=== PATIENT | female | born 1960 | race Hispanic/Latino ===

== ENCOUNTER → 2016-09-23 | Outpatient (CLI) | payer OTHER ==
[~2016-09-23] MED LIST: LIDOCAINE 1% MDV 20ML VIAL As Ordered ONE
--- NOTE | 2016-09-23 16:42 | REP ---
DIGITAL LEFT MAMMOGRAM: 09/23/2016. Comparison: MRI breast 07/09/2016, ultrasound left breast and diagnostic mammogram 06/04/2016 at [facility], screening mammogram 05/24/2016, at [facility]. Study is intended as stereotactic mammographic biopsy of nodular tissue asymmetry lower outer quadrant left breast. The finding persists on the diagnostic mammogram, was not seen on ultrasound and MRI breast was unremarkable. Procedure was described to the patient and consent obtained by MISA Nelson, under my direct supervision. The patient seated a lateral approach to the inner half of the right breast was done and stereo pair image set were obtained. Images do not clearly define a nodule. The field of view was moved inferiorly to cover more of the anterior inferior of left breast. This did not satisfactorily reveal the area in question. Therefore it was decided to attempt a decubitus position with the imaging from below the inner half of the anterior left breast. This also failed to clearly identify the nodular tissue asymmetry as a reproducible target for this exam. I suspect decompression of the examination has completely resolved or compressed the findings to a normal appearance of the surrounding parenchyma. Impression: 1. Cancelled attempt at stereotactic biopsy of some nodular tissue asymmetry of the lower inner quadrant left breast seen on outside mammogram. Both the ultrasound and MRI breast were unremarkable in this patient. The stereotactic pair of images in multiple projections and attempts are unable to identify the clearly definable nodular tissue asymmetry seen on the screening and diagnostic mammogram previously. I suspect it may resolved completely with the compression device. My recommendation would be for the patient to return for diagnostic left mammogram and possible breast ultrasound 6 months from her prior diagnostic mammogram which would be December or January of this year. She understands and no earlier follow-up is felt warranted at this time, unless clinically urgent physical finding is present. Signed by Drew Thayer MD 09/23/2016 05:27 P
== END ==
LOC: M RADPRO 12:12
PROVIDERS: ATTEND Surgery
DX: N63 Unspecified lump in breast (principal)
CPT/HCPCS: 19081; G0206

== ENCOUNTER → 2017-07-01 | Outpatient (CLI) | payer OTHER ==
--- NOTE | 2017-07-01 16:47 | REPMRS ---
Patient History The patient states she had a clinical breast exam in December 2016. Patient had first child at age 33. Family history of endometrial cancer in maternal aunt at age 55. Digital Mammo Screening Bilat: July 01, 2017 - Exam #: [id number] Bilateral CC and MLO view(s) were taken. Technologist: Ling Morrison, Technologist Prior study comparison: November 18, 2012, bilateral digital mammo screening bilat performed at [facility]. November 05, 2011, bilateral digital mammo screening bilat performed at [facility]. FINDINGS: There are scattered fibroglandular densities. There has been no change in the appearance of the mammogram from the prior studies. There is a mild amount of scattered fibroglandular density which is fairly symmetric. There is no interval development of dominant mass, architectural distortion, or clustered microcalcification suggestive of malignancy. ASSESSMENT: BI-RADS/ACR category 1 mammogram. Negative. Recommendation Routine screening mammogram in 1 year (for women over age 40). This mammogram was interpreted with the aid of an FDA-approved computer-aided dectection system. Electronically Signed By: Juan Manuel Lagunas MD 07/01/17 [id number]
== END ==
LOC: M RAD 14:55
PROVIDERS: ATTEND Family Medicine
DX: Z12.31 Encounter for screening mammogram for malignant neoplasm of breast (principal); Z80.49 Family history of malignant neoplasm of other genital organs

== ENCOUNTER → 2019-08-05 | Outpatient (CLI) | payer OTHER ==
--- NOTE | 2019-08-05 10:11 | REPMRS ---
Patient History The patient states she has not had a clinical breast exam in over a year. Family history of endometrial cancer at age 55 in maternal aunt. Digital Mammo Screening Bilat: August 05, 2019 - Exam #: [id number] Bilateral CC and MLO view(s) were taken. Technologist: Leyda Dinh Technologist Prior study comparison: August 05, 2018, bilateral digital mammo screening bilat performed at [facility]. July 01, 2017, bilateral digital mammo screening bilat performed at [facility]. November 18, 2012, bilateral digital mammo screening bilat performed at [facility]. FINDINGS: There are scattered fibroglandular densities. There has been no change in the appearance of the mammogram from the prior studies. There is a mild amount of scattered fibroglandular density which is fairly symmetric. There is no interval development of dominant mass, architectural distortion, or grouped microcalcification suggestive of malignancy. Assessment: BI-RADS/ACR category 1 mammogram. Negative Mammogram. Recommendation Routine screening mammogram of both breasts in 1 year (for women over age 40). This patient's Lifetime Breast Cancer Risk is estimated at 10.3 %. This mammogram was interpreted with the aid of an FDA-approved computer-aided dectection system. Electronically Signed By: Juan Manuel Lagunas MD 08/05/19 1011
== END ==
LOC: M RAD 08:33
PROVIDERS: ATTEND Family Medicine
DX: Z12.31 Encounter for screening mammogram for malignant neoplasm of breast (principal)

== ENCOUNTER → 2019-08-25 | Outpatient (REF) | payer OTHER | LOC: M SFHCLERA 17:45 | PROVIDERS: ATTEND Nurse Practitioner Family | DX: R68.89 Other general symptoms and signs (principal) ==

== ENCOUNTER → 2020-09-20 | Outpatient (CLI) | payer OTHER ==
--- NOTE | 2020-09-20 16:06 | REPMRS ---
Patient History The patient states she has not had a clinical breast exam in over a year. Patient is postmenopausal and had first child at age 33. Family history of endometrial cancer at age 55 in maternal aunt. No Hormone Replacement Therapy Digital Woman Screen Mammo: September 20, 2020 - Exam #: [id number] Bilateral CC and MLO view(s) were taken. Technologist: Ketty Garrido, Technologist Prior study comparison: August 05, 2019, bilateral digital mammo screening bilat, performed at [facility]. August 05, 2018, bilateral digital mammo screening bilat, performed at [facility]. July 01, 2017, bilateral digital mammo screening bilat, performed at [facility]. FINDINGS: There are scattered fibroglandular densities. The Volpara volumetric breast density category is:B. There has been no change in the appearance of the mammogram from the prior studies. There is a mild amount of scattered fibroglandular density which is fairly symmetric. There is no interval development of dominant mass, architectural distortion, or grouped microcalcification suggestive of malignancy. 3-D tomosynthesis shows no additional findings. Assessment: BI-RADS/ACR category 1 mammogram. Negative Mammogram. Recommendation Routine screening mammogram of both breasts in 1 year (for women over age 40). This patient's [facility] Lifetime Breast Cancer Risk is estimated at 10.0 %. This mammogram was interpreted with the aid of an FDA-approved computer-aided dectection system. Electronically Signed By: Juan Manuel Lagunas MD 09/20/20 [id number]
== END ==
LOC: M WHC 14:57
PROVIDERS: ATTEND Family Medicine
DX: Z12.31 Encounter for screening mammogram for malignant neoplasm of breast (principal); Z80.49 Family history of malignant neoplasm of other genital organs

== ENCOUNTER → 2023-01-15 | Outpatient (CLI) | payer OTHER | LOC: M WHC 14:50 | PROVIDERS: ATTEND Family Medicine | DX: Z12.31 Encounter for screening mammogram for malignant neoplasm of breast (principal) ==

== ENCOUNTER 2023-09-24 10:54 | Day surgery (SDC) | payer OTHER ==
[~2023-09-24] VITALS: Ht 157.5 cm; Wt 66.7 kg
[~2023-09-24 10:54] MED LIST changes: +CIDA500T2 PO; +ERGO500029 PO; -LIDOCAINE 1% MDV 20ML VIAL As Ordered ONE; +LIDOCAINE 3.5 % 1ML OPHTH TOPICAL GEL OU ONE
[2023-09-24] MEDS ORDERED: LR 500 ML IV SCH (13:10)
[2023-09-24] MEDS: POVIDONE-IODINE 5% OPHTH PREP SOL 30ML As Ordered ONE (13:54)
[2023-09-24] MEDS: LIDOCAINE 2% W/EPINEPHRINE 20ML VIAL **PRES FREE As Ordered ONE (13:54)
[2023-09-24] MEDS: TOBRADEX OPHTH OINT 3.5 GM As Ordered ONE (13:54)
[2023-09-24] MEDS: LR 1,000 ML IV SCH (14:10)
[2023-09-24 14:35] VITALS: BP 165/83; TEMP 97.8; O2SAT 98
[2023-09-24] MEDS ORDERED: MIDAZOLAM INJ 2MG/2ML VIAL As Ordered ONE (14:42)
[2023-09-24] MEDS ORDERED: fentaNYL 100 MCG/2 ML INJECTION As Ordered ONE (14:42)
== END 2023-09-24 15:15 | disposition home or self-care (01) ==
LOC: M SDC 10:54
PROVIDERS: ATTEND Ophthalmology
DX: H02.403 Unspecified ptosis of bilateral eyelids (principal); Z91.013 Allergy to seafood
CPT/HCPCS: 67904; 88302; J2250; J3010

== ENCOUNTER → 2025-04-19 | Outpatient (CLI) | payer OTHER ==
[~2025-04-19] MED LIST changes: -LIDOCAINE 3.5 % 1ML OPHTH TOPICAL GEL OU ONE
[2025-04-19 18:48] LABS: BASO # 0.1 10^3/uL (0.0-0.2); BASO % 0.9 % (0.0-1.0); EOS # 0.2 10^3/uL (0.0-0.5); EOS % 2.3 % (0.0-3.0); LYMPH # 2.6 10^3/uL (1.5-5.0); LYMPH % 39.6 % (24.0-44.0); MONO # 0.6 10^3/uL (0.0-0.8); MONO % 8.4 % (2.0-8.0); NEUTROPHILS # 3.2 10^3/uL (1.5-8.5); NEUTROPHILS % 48.6 % (36.0-66.0); PLATELET COUNT, AUTOMATED 243 10^3/uL (150-450)
[2025-04-19 19:21] LABS: ALT/SGPT 35 U/L (7.0-40); AST/SGOT 34 U/L (<34); CALCIUM LEVEL 8.7 MG/DL (8.3-10.6); CARBON DIOXIDE LEVEL 29 MMOL/L (20-31); CHLORIDE LEVEL 104 MMOL/L (98-107); CREATININE FOR GFR 0.67 MG/DL (0.55-1.30); GLOMERULAR FILTRATION RATE > 90.0 (>45); IRON (FE) 71 UG/DL (50-170); PERCENT SATURATION 27.1 % (13.2-45.0); POTASSIUM SERUM 4.1 MMOL/L (3.5-5.1); SODIUM LEVEL 140 MMOL/L (136-145)
[2025-04-19 20:18] LABS: HEPATITIS B SURFACE ANTIBODY NEGATIVE (POSITIVE); HEPATITIS C VIRUS ABY INDEX < 0.02 INDEX (<0.8)
[2025-04-22 12:17] LABS: ANA PATTERN 2 Nuclear, Homogeneous; ANA TITER 2 1:80 titer (NEGATIVE)
== END ==
LOC: M LAB 16:33
PROVIDERS: ATTEND Internal Medicine Gastroenterology
DX: R94.5 Abnormal results of liver function studies (principal)